=== PATIENT | male | born 1950 | race Caucasian/White ===

== ENCOUNTER 2024-03-29 18:14 | Emergency (ER) | payer MEDICARE ==
[~2024-03-29] VITALS: Ht 185.4 cm; Wt 120.2 kg
[2024-03-29 18:33] VITALS: BP 134/88; TEMP 98.2; O2SAT 96
[2024-03-29] MEDS: BACI/NEOM/POLY B OINT PKT 1 UDPKT PACKET TP ONE (19:30)
[2024-03-29] MEDS: LIDOCAINE 2%-EPI 1:100,000 30 ML VIAL TP ONE (19:30)
[2024-03-29] MEDS ORDERED: LIDOCAINE 2%-EPI 1:100,000 30 ML VIAL ONE (19:44)
[2024-03-29] MEDS ORDERED: TDAP [DIPH/PERTUSSIS/TET] 0.5 ML VIAL IM ONE (20:39)
[2024-03-29] MEDS: TDAP [DIPH/PERTUSSIS/TET] 0.5 ML VIAL IM ONE (20:42)
[2024-03-29] MEDS ORDERED: BACI28OI9 TP (20:44)
== END 2024-03-29 21:12 | disposition home or self-care (01) ==
LOC: ER 18:14
DX: S81.812A Laceration without foreign body, left lower leg, initial encounter (principal); E78.5 Hyperlipidemia, unspecified; I10 Essential (primary) hypertension; W22.09XA Striking against other stationary object, initial encounter; Y93.01 Activity, walking, marching and hiking; Y92.098 Other place in other non-institutional residence as the place of occurrence of the external cause; Y99.8 Other external cause status
CPT/HCPCS: 12002; 90471; 90715; 99283; A6403; J3490